=== PATIENT | female | born 1980 | race Caucasian/White ===

== ENCOUNTER 2018-08-24 20:20 | Emergency (ER) | payer OTHER, MEDICAID ==
[~2018-08-24] VITALS: Ht 167.6 cm; Wt 108.9 kg
[~2018-08-24 20:20] MED LIST: APAP650 PO; CELEXA; CELEXA 20 MG TA20 M1 PO; ESTRADIOL 1 MG T1 M1 PO; FLAGYL; FLEXERIL PO; HYDROCODON-ACE1 EAC7 PO; IBUPROFEN 800800 M1 PO; NOHOMEMEDICATIONS; NORCO 5-325 TA1 EAC1 PO; PHENERGAN 25 MG25 MG PO; PRENATAL; VICODIN; VISTARIL 25 MG25 M1 PO
[2018-08-24] MEDS ORDERED: NORCO 5-325 TA1 EAC1 PO (21:00)
[2018-08-24 21:23] VITALS: BP 138/74
== END 2018-08-24 21:23 | disposition home or self-care (01) ==
LOC: M.ERS 20:20
DX: S93.401A Sprain of unspecified ligament of right ankle, initial encounter (principal); F32.9 Major depressive disorder, single episode, unspecified; F41.9 Anxiety disorder, unspecified; F17.210 Nicotine dependence, cigarettes, uncomplicated; Z90.710 Acquired absence of both cervix and uterus; Z88.1 Allergy status to other antibiotic agents; Z88.2 Allergy status to sulfonamides; W00.0XXA Fall on same level due to ice and snow, initial encounter; Y93.89 Activity, other specified; Y92.89 Other specified places as the place of occurrence of the external cause; Y99.8 Other external cause status